=== PATIENT | male | born 1990 | race Caucasian/White ===

== ENCOUNTER 2016-10-09 13:20 | Emergency (ER) | payer SELFPAY ==
[2016-10-09] MEDS ORDERED: FAMOTIDINE 20 MG TABLET PO STA (14:29)
[2016-10-09] MEDS ORDERED: SUCRALFATE 1 GM/10 ML UDC PO STA (14:29)
[2016-10-09] MEDS ORDERED: LIDOCAINE VISCOUS 2% 15 ML UDC MM STA (14:29)
[2016-10-09] MEDS ORDERED: MAG HYDROX/AL HYDROX/SIMETH 30 ML UDC PO STA (14:29)
[2016-10-09] MEDS ORDERED: LIDOCAINE VISCOUS 2% 15 ML UDC MM ONE (14:39)
[2016-10-09] MEDS ORDERED: FAMOTIDINE 20 MG TABLET ONE (14:39)
[2016-10-09] MEDS ORDERED: SUCRALFATE 1 GM/10 ML UDC ONE (14:39)
[2016-10-09] MEDS ORDERED: MAG HYDROX/AL HYDROX/SIMETH 30 ML UDC ONE (14:39)
== END 2016-10-09 15:06 | disposition home or self-care (01) ==
DX: R10.84 Generalized abdominal pain (principal); R03.0 Elevated blood-pressure reading, without diagnosis of hypertension
CPT/HCPCS: 36415; 80053; 81003; 83690; 85025; 99283; A9270

== ENCOUNTER 2016-11-26 13:14 | Outpatient (CLI) | payer OTHER | END 2016-11-26 13:15 | disposition home or self-care (01) | LOC: RT.S 13:14 | PROVIDERS: ATTEND Nurse Practitioner Family | DX: R07.9 Chest pain, unspecified (principal) | CPT/HCPCS: 93005 ==

== ENCOUNTER 2017-02-24 09:59 | Emergency (ER) | payer OTHER ==
[2017-02-24] MEDS ORDERED: ALBUTEROL NEB 2.5 MG/3 ML INH STA (11:04)
--- NOTE | 2017-02-24 11:08 | ED Physician Documentation ---
History of Present Illness - Stated complaint Stated Complaint: SOA - Chief complaint Chief Complaint: Resp - Additonal information Additional information: hx from pt 26 male ex smoker otherwise healthy strong fxh CAD but at an older age than this pt chest and throat tightness with exertion for several days to a week, getting worse, could not make it up the stairs today no fever cough swelling to upper L calf for quite some time - has been meaning to get it checked out Review of Systems Constitutional: denies: Fever, Chills Cardiac: reports: Chest pain / pressure Respiratory: reports: Dyspnea. denies: Cough GI: denies: Abdominal Pain, Nausea, Vomiting Musculoskeletal: reports: Extremity swelling Endocrine: denies: Easy bruising / bleeding Immunocompromised: denies: Immunocompromised PD PAST MEDICAL HISTORY - Past Surgical History Past Surgical History: No - Present Medications Home Medications: Ambulatory Orders Medication Instructions Recorded Confirmed Famotidine [Pepcid] 20 mg PO BID #60 tablet 10/09/16 Omeprazole [PriLOSEC] 20 mg PO DAILY #30 capsule 10/09/16 Albuterol Sulfate [Proair Hfa 2 puffs INH Q4H PRN #1 inhaler 02/24/17 Inhaler] - Allergies Allergies/Adverse Reactions: Allergies Allergy/AdvReac Type Severity Reaction Status Date / Time No Known Drug Allergies Allergy Verified 10/09/16 13:27 - Social History Does the pt smoke?: No Smoking Status: Never smoker Does the pt drink ETOH?: Yes - Immunizations Immunizations are current?: Yes PD ED PE NORMAL - Vitals Vital signs reviewed: Yes - General General: Alert and oriented X 3 - HEENT HEENT: PERRL - Neck Neck: Supple, no meningeal sign, Other (no oral swelling) - Cardiac Cardiac: RRR - Respiratory Respiratory: No respiratory distress, Clear bilaterally - Abdomen Abdomen: Soft, Non tender - Extremities Extremities: Other (STS posterior calf near popliteal fossa, mild TTP) - Neuro Neuro: Alert and oriented X 3 Results - Vitals Vitals: Vital Signs - 24 hr 02/24/17 02/24/17 02/24/17 10:01 11:15 11:52 Temperature 36.6 C 36.2 C L Heart Rate 90 60 76 Respiratory 24 16 15 Rate Blood Pressure 119/75 117/68 O2 Saturation 99 97 02/24/17 02/24/17 14:06 14:07 Temperature 36.5 C Heart Rate 65 64 Respiratory 16 16 Rate Blood Pressure 131/80 H 122/70 O2 Saturation 100 97 Oxygen O2 Source Room air - EKG (time done) 1117 Rate: Rate (enter#) Rhythm: NSR [place]: Normal Intervals: Normal MI QRS: Normal Ischemia: Normal ST segments - Labs Labs: Laboratory Tests 02/24/17 02/24/17 02/24/17 11:27 11:27 11:27 WBC 7.6 RBC 4.98 Hgb 15.8 Hct 44.5 MCV 89.4 MCH 31.6 H MCHC 35.4 RDW 13.2 Plt Count 240 MPV 8.4 Neut # 4.3 Lymph # 2.2 [place] # 0.7 Eos # 0.3 Baso # 0.1 Absolute Nucleated RBC 0.01 Nucleated RBCs 0.1 D-Dimer Sodium 139 Potassium 4.6 Chloride 103 Carbon Dioxide 28 Anion Gap 8.0 BUN 23 H Creatinine 1.0 Estimated GFR (MDRD) 89 Glucose 87 Calcium 9.9 Total Bilirubin 0.4 AST 26 ALT 24 Alkaline Phosphatase 41 L Troponin I < 0.04 Total Protein 7.7 Albumin 4.3 Globulin 3.4 Albumin/Globulin Ratio 1.3 Lipase 93 H 02/24/17 11:27 WBC RBC Hgb Hct MCV MCH MCHC RDW Plt Count MPV Neut # Lymph # [place] # Eos # Baso # Absolute Nucleated RBC Nucleated RBCs D-Dimer < 200.0 L Sodium Potassium Chloride Carbon Dioxide Anion Gap BUN Creatinine Estimated GFR (MDRD) Glucose Calcium Total Bilirubin AST ALT Alkaline Phosphatase Troponin I Total Protein Albumin Globulin Albumin/Globulin Ratio Lipase - Rads (name of study) CXR Radiology: See rad report (NACPD) doppler LLE Radiology: See rad report (no DVT) echo Radiology: See rad report ("essentially normal" no wall motion abn) PD MEDICAL DECISION MAKING - ED course ED course: neg EKG and neg trop after sx for many days, also no wall motiron abn on echo - feel ACS ruled out had popliteal swelling but no DVT on doppler and neg D dimer so do not think PE and do not think CTPA needed CXR neg pt felt little better with inhlaer may be RAD 2/2 smoke in air will dc with MDI rx Departure - Departure Disposition: 01 Home, Self Care Clinical Impression: Chest pain Qualifiers: Chest pain type: unspecified Qualified Code(s): R07.9 - Chest pain, unspecified Dyspnea Qualifiers: Dyspnea type: unspecified Qualified Code(s): R06.00 - Dyspnea, unspecified Reactive airway disease Qualifiers: Asthma severity: unspecified severity Asthma complication type: with acute exacerbation Qualified Code(s): J45.901 - Unspecified asthma with (acute) exacerbation Condition: Good Instructions: ED Dyspnea Shortness of Breath, ED Chest Pain Atypical Unkn Cause , ED Reactive Airway Disease Prescriptions: Albuterol Sulfate [Proair Hfa Inhaler] 2 puffs INH Q4H PRN #1 inhaler PRN Reason: Shortness Of Air/Wheezing Comments: All your tests came back fine. The EKG, blood test for your heart, and echocardiogram do not indicate a heart attack. The blood work, chest xray and ultrasound do not indicate you have a blood clot in your lungs Also there was no pneumonia Having ruled out all those dangerous caused of chest tightness and shortness of breath, I think your symptoms may be due to reactive airway disease as we had discussed - so I have prescribe an inhaler to see if that helps Please follow up with your PMD for a recheck within a week Forms: Activity restrictions
[2017-02-24] MEDS ORDERED: ALBUTEROL NEB 2.5 MG/3 ML INH ONE (11:18)
[2017-02-24 11:50] LABS: BASOPHILS # (AUTO) 0.1 10^3/uL (0.0-0.1); BASOPHILS % (AUTO) 0.9 %; EOSINOPHILS # (AUTO) 0.3 10^3/uL (0.0-0.7); EOSINOPHILS % (AUTO) 3.6 %; HCT - HEMATOCRIT 44.5 % (42.0-52.0); HGB - HEMOGLOBIN 15.8 g/dL (14.0-18.0); LYMPHOCYTES # (AUTO) 2.2 10^3/uL (1.5-3.5); LYMPHOCYTES % (AUTO) 29.4 %; MEAN CORPUSCULAR HEMOGLOBIN 31.6 pg (27.0-31.0); MEAN CORPUSCULAR HGB CONC 35.4 g/dL (32.0-36.0); MEAN CORPUSCULAR VOLUME 89.4 fL (80.0-94.0); MEAN PLATELET VOLUME 8.4 fL (7.4-11.4); MONOCYTES # (AUTO) 0.7 10^3/uL (0.0-1.0); MONOCYTES % (AUTO) 9.1 %; NEUTROPHILS # (AUTO) 4.3 10^3/uL (1.5-6.6); NUCLEATED RED BLOOD CELLS AUTO 0.1 /100WBC; RED BLOOD COUNT 4.98 10^6/uL (4.70-6.10); RED CELL DISTRIBUTION WIDTH 13.2 % (12.0-15.0); UNCORRECTED WHITE BLOOD COUNT 7.6 x10^3/uL; WHITE BLOOD COUNT 7.6 x10^3/uL (4.8-10.8)
[2017-02-24 12:06] LABS: ALBUMIN/GLOBULIN RATIO 1.3 (1.0-2.2); BILIRUBIN,TOTAL 0.4 mg/dL (0.2-1.0); CALCIUM 9.9 mg/dL (8.5-10.3); POTASSIUM 4.6 mmol/L (3.5-5.0); TOTAL PROTEIN 7.7 g/dL (6.7-8.2)
--- NOTE | 2017-02-24 12:44 | Ultrasound Report ---
LEFT LOWER EXTREMITY VENOUS SONOGRAM: 02/24/2017 HISTORY: Left lower extremity swelling. TECHNIQUE: Real-time scanning of the left lower extremity venous system was saved. Static images re viewed. FINDINGS: The veins imaged include the left common femoral, profunda femoral, femoral, popliteal, po sterior tibial, and peroneal. The veins of the left lower extremity demonstrate normal compressibility, augmentation, phasicity, an d flow. No intraluminal clot is seen. IMPRESSION: NEGATIVE FOR DEEP VENOUS THROMBOSIS LEFT LOWER EXTREMITY. JOB #: [id number] EXT JOB #:[id number]
--- NOTE | 2017-02-24 13:44 | XRAY Preliminary Report ---
Exam: XR Chest 2 View PA/LAT IMPRESSION: No focal consolidation or pleural effusion. [facility] SITE ID: [id number]
--- NOTE | 2017-02-24 13:47 | XRAY Report ---
EXAM: CHEST RADIOGRAPHY EXAM DATE: 02/24/2017 01:05 PM. CLINICAL HISTORY: Cp soa with exertion cant get up stairs strong fhx. COMPARISON: None. TECHNIQUE: 2 views. FINDINGS: Lungs/Pleura: No focal opacities evident. No pleural effusion. No pneumothorax. Normal volumes. Mediastinum: Heart and mediastinal contours are unremarkable. Other: None. IMPRESSION: No focal consolidation or pleural effusion. [facility] Referring Provider Line: [phone] SITE ID: [id number]
[2017-02-24 15:01] VITALS: BP 126/79
== END 2017-02-24 15:14 | disposition home or self-care (01) ==
LOC: ED 09:59
DX: R07.9 Chest pain, unspecified (principal); R06.00 Dyspnea, unspecified; J45.901 Unspecified asthma with (acute) exacerbation; Z82.49 Family history of ischemic heart disease and other diseases of the circulatory system; Z87.891 Personal history of nicotine dependence
CPT/HCPCS: 36415; 71020; 80053; 83690; 84484; 85025; 85379; 93005; 93306; 93971; 94640; 99283; J7613